=== PATIENT | female | born 1965 | race American Indian/Alaskan Native ===

== ENCOUNTER 2016-11-05 14:19 | Outpatient (CLI) | payer BC | END 2016-11-05 14:20 | disposition home or self-care (01) | LOC: LAB 14:19 | PROVIDERS: ATTEND Internal Medicine | DX: E11.65 Type 2 diabetes mellitus with hyperglycemia (principal) | CPT/HCPCS: 36415; 83036 ==

== ENCOUNTER 2017-01-17 07:18 | Outpatient (CLI) | payer BC ==
--- NOTE | 2017-01-17 08:15 | Mammography Report ---
Bilateral mammogram: Compared to 01/14/16. CAD study utilized. Findings: Predominance of adipose tissue bilaterally. No mass or microcalcification. Benign axillary nodes. Impression: Benign findings. Annual followup recommended. COMMENT: Patient follow-up letters are generated in [employer].BI-RADS CATEGORY: 2 = Benign ACR BI-RADS MAMMOGRAPHIC CODES: 0 = Needs additional imaging evaluation; 1 = Negative; 2 = Benign; 3 = Probably benign; 4 = Suspicious; 5 = Malignant; 6 = Known biopsy-proven malignancy COMMENT: 1. Dense breast tissue, i.e., adenosis, fibrocystic changes, etc., may obscure an underlying neoplasm. 2. Approximately 10% of cancers are not detected with mammography. 3. A negative mammography report should not delay biopsy if a clinically suspicious mass is present.
== END 2017-01-17 07:19 | disposition home or self-care (01) ==
LOC: MAMMO 07:18
PROVIDERS: ATTEND Obstetrics & Gynecology
DX: Z12.31 Encounter for screening mammogram for malignant neoplasm of breast (principal); E11.65 Type 2 diabetes mellitus with hyperglycemia; I10 Essential (primary) hypertension
CPT/HCPCS: 36415; 83036; G0202; 77067

== ENCOUNTER 2017-11-29 11:27 | Outpatient (CLI) | payer BC ==
[2017-11-29 12:13] LABS: Albumin 3.9 g/dL (3.9-5); Calcium 9.1 mg/dL (8.4-10.2); Chol/HDL Ratio 1.89 %
== END 2017-11-29 11:28 | disposition home or self-care (01) ==
LOC: LAB 11:27
PROVIDERS: ATTEND Internal Medicine
DX: E11.65 Type 2 diabetes mellitus with hyperglycemia (principal); R53.83 Other fatigue; E78.2 Mixed hyperlipidemia; I10 Essential (primary) hypertension; Z90.710 Acquired absence of both cervix and uterus
CPT/HCPCS: 36415; 80053; 80061; 83036

== ENCOUNTER 2018-02-06 07:42 | Outpatient (CLI) | payer BC ==
--- NOTE | 2018-02-06 16:30 | Mammography Report ---
BILATERAL DIGITAL SCREENING MAMMOGRAM with CAD: 02/06/18 07:42:00 CLINICAL: Routine screening. COMPARISON:01/17/17 FINDINGS: The breasts are heterogeneously dense, which may obscure small masses. No mass, architectural distortion or suspicious calcifications. IMPRESSION: No mammographic evidence of malignancy. BI-RADS CATEGORY: 1 - - Negative RECOMMENDATION: Routine mammographic screening in one year. COMMENT: Patient follow-up letters are generated by our [employer] application.
== END 2018-02-06 07:43 | disposition home or self-care (01) ==
LOC: MAMMO 07:42
PROVIDERS: ATTEND Obstetrics & Gynecology
DX: Z12.31 Encounter for screening mammogram for malignant neoplasm of breast (principal); I10 Essential (primary) hypertension; E11.9 Type 2 diabetes mellitus without complications; Z90.710 Acquired absence of both cervix and uterus
CPT/HCPCS: 77067

== ENCOUNTER 2018-10-25 10:47 | Outpatient (CLI) | payer BC | END 2018-10-25 10:48 | disposition home or self-care (01) | LOC: LAB 10:47 | PROVIDERS: ATTEND Internal Medicine | DX: E11.65 Type 2 diabetes mellitus with hyperglycemia (principal); I10 Essential (primary) hypertension; Z90.710 Acquired absence of both cervix and uterus | CPT/HCPCS: 36415; 83036 ==

== ENCOUNTER 2019-02-13 07:18 | Outpatient (CLI) | payer BC ==
--- NOTE | 2019-02-13 16:40 | Mammography Report ---
BILATERAL DIGITAL SCREENING MAMMOGRAM WITH CAD INDICATION: Routine screening mammography. TECHNIQUE: Digital bilateral 2D mammography was obtained in the craniocaudal and mediolateral obliq ue projections. This examination was interpreted with the benefit of Computer-Aided Detection analysi s. COMPARISON: 02/06/2018 FINDINGS: Breast Density: The breasts are heterogeneously dense, which may obscure small masses. No mass, architectural distortion or suspicious calcifications. IMPRESSION:No mammographic evidence of malignancy. BI-RADS Category 1: Negative. No mammographic evidence of malignancy. Recommend routine screening m ammography in one year. A "normal" or negative report should not discourage follow up or biopsy of a clinically significant f inding. A written summary of these findings will be mailed to the patient. The patient will be entered into a mammography reporting system which will generate a reminder letter for the patient's next appointmen t at the appropriate interval. The [employer] recommends yearly mammograms starting at age 40 and continuing as l cathi as a woman is in good health. Breast MRI is recommended for women with an approximate 20-25% or greater lifetime risk of breast cancer, including women with a strong family history of breast or ova darwin cancer or who have been treated for Hodgkin's disease. Signer Name: Mahin Mays MD Signed: 02/13/2019 4:36 PM Workstation Name: [id number]
== END 2019-02-13 07:19 | disposition home or self-care (01) ==
LOC: MAMMO 07:18
PROVIDERS: ATTEND Obstetrics & Gynecology
DX: Z12.31 Encounter for screening mammogram for malignant neoplasm of breast (principal); I10 Essential (primary) hypertension; E11.9 Type 2 diabetes mellitus without complications; Z90.710 Acquired absence of both cervix and uterus
CPT/HCPCS: 77067

== ENCOUNTER 2019-07-27 09:21 | Outpatient (CLI) | payer BC ==
[2019-07-27 10:01] LABS: Alanine Aminotransferase 14 units/L (7-56); Albumin 4.2 g/dL (3.9-5); BUN/Creatinine Ratio 16; Blood Urea Nitrogen 16 mg/dL (7-17); Hemolysis Index 6
== END 2019-07-27 09:22 | disposition home or self-care (01) ==
LOC: LAB 09:21
PROVIDERS: ATTEND Internal Medicine
DX: E11.65 Type 2 diabetes mellitus with hyperglycemia (principal); R53.83 Other fatigue
CPT/HCPCS: 36415; 80053; 83036

== ENCOUNTER 2020-03-10 10:17 | Outpatient (CLI) | payer BC ==
--- NOTE | 2020-03-10 12:22 | Ultrasound Report ---
BILATERAL DIGITAL DIAGNOSTIC MAMMOGRAM WITH CAD -- 03/10/2020 RIGHT LIMITED BREAST ULTRASOUND INDICATION: Patient presents for evaluation of an area of palpable concern in the right breast. TECHNIQUE: Digital bilateral mammographic imaging was performed. Spot compression views were obtaine d. Limited ultrasound was performed. This examination was interpreted with the benefit of Computer- ded Detection (CAD) analysis. COMPARISON: Prior mammograms 02/13/2019 and 02/06/2018 FINDINGS: Breast Density: The breasts are heterogeneously dense, which may obscure small masses. MAMMOGRAPHIC FINDINGS: There is no evidence of dominant mass, suspicious calcifications or architectu ral distortion in either breast. There has been no significant change compared with the prior examina tions. There is no mammographic abnormality to account for the area of palpable concern in the 5 to 6 :00 position of the right breast, therefore targeted ultrasound subsequently performed. ULTRASOUND FINDINGS: Targeted ultrasound evaluation was performed of the area of interest. Targeted ultrasound of the area of palpable concern in the lower inner quadrant of the right breast reveals n ormal fibroglandular tissue. No suspicious cystic or solid lesion identified. IMPRESSION: 1. No suspicious mammographic or sonographic abnormality to account for the area of palpable concern in the right breast, therefore clinical correlation is recommended. Follow up recommendation: Routine yearly BI-RADS Category 1: Negative. A "normal" or negative report should not discourage follow up or biopsy of a clinically significant f inding. A written summary of these findings will be mailed to the patient. The patient will be entered into a mammography reporting system which will generate a reminder letter for the patient's next appointmen t at the appropriate interval. According to the [employer], yearly mammograms are recommended starting at age 40 and continuing as long as a woman is in good health. Breast MRI is recommended for women with an eric roximately 20-25% or greater lifetime risk of breast cancer, including women with a strong family his tory of breast or ovarian cancer and women who have been treated for Hodgkin's disease. Signer Name: Shonda Pan MD Signed: 03/10/2020 12:17 PM Workstation Name: [id number]
== END 2020-03-10 10:18 | disposition home or self-care (01) ==
LOC: MAMMO 10:17
PROVIDERS: ATTEND Obstetrics & Gynecology
DX: N63.20 Unspecified lump in the left breast, unspecified quadrant (principal)
CPT/HCPCS: 77066

== ENCOUNTER 2020-03-27 10:06 | Outpatient (CLI) | payer BC ==
[2020-03-27 11:02] LABS: Albumin 4.3 g/dL (3.9-5); Calcium 9.7 mg/dL (8.4-10.2)
== END 2020-03-27 10:07 | disposition home or self-care (01) ==
LOC: LAB 10:06
PROVIDERS: ATTEND Internal Medicine
DX: E11.65 Type 2 diabetes mellitus with hyperglycemia (principal); R53.83 Other fatigue
CPT/HCPCS: 36415; 80053; 83036

== ENCOUNTER 2020-09-18 09:54 | Outpatient (CLI) | payer BC ==
[2020-09-18 10:37] LABS: Albumin 3.9 g/dL (3.9-5); Calcium 9.7 mg/dL (8.4-10.2)
== END 2020-09-18 09:55 | disposition home or self-care (01) ==
LOC: LAB 09:54
PROVIDERS: ATTEND Internal Medicine
DX: E11.65 Type 2 diabetes mellitus with hyperglycemia (principal); R53.83 Other fatigue; R73.09 Other abnormal glucose
CPT/HCPCS: 36415; 80053; 83036; 84443

== ENCOUNTER 2021-03-02 08:52 | Outpatient (CLI) | payer BC ==
--- NOTE | 2021-03-02 09:56 | Mammography Report ---
DIGITAL SCREENING MAMMOGRAM WITH CAD, 03/02/2021 CLINICAL INFORMATION / INDICATION: Routine screening mammography. TECHNIQUE: Digital bilateral 2D mammography was obtained in the craniocaudal and mediolateral obliqu e projections. This examination was interpreted with the benefit of Computer-Aided Detection analysis . COMPARISON: None 2019, 02/13/2019, 02/05/2018, 01/17/2017 FINDINGS: Breast Density: The breasts are heterogeneously dense, which may obscure small masses. No dominant mass, suspicious calcifications, or architectural distortion in either breast. IMPRESSION: No mammographic evidence of malignancy. Follow up recommendation: Routine yearly BI-RADS Category 1: Negative. A "normal" or negative report should not discourage follow up or biopsy of a clinically significant f inding. A written summary of these findings will be mailed to the patient. The patient will be entered into a mammography reporting system which will generate a reminder letter for the patient's next appointmen t at the appropriate interval. The [employer] recommends yearly mammograms starting at age 40 and continuing as l cathi as a woman is in good health. Breast MRI is recommended for women with an approximate 20-25% or greater lifetime risk of breast cancer, including women with a strong family history of breast or ova darwin cancer or who have been treated for Hodgkin's disease. Signer Name: Jessie More MD Signed: 03/02/2021 9:52 AM Workstation Name: [id number]
== END 2021-03-02 08:53 | disposition home or self-care (01) ==
LOC: MAMMO 08:52
PROVIDERS: ATTEND Obstetrics & Gynecology
DX: Z12.31 Encounter for screening mammogram for malignant neoplasm of breast (principal)
CPT/HCPCS: 77067

== ENCOUNTER 2021-04-13 14:43 | Outpatient (CLI) | payer BC ==
[2021-04-13 15:30] LABS: Creatinine,Urine 180.6 mg/dL (0.1-20.0)
[2021-04-13 15:30] LABS: Basophils % (Auto) 1.1 % (0.0-1.8); Eosinophils % (Auto) 0.8 % (0.0-4.3); Hematocrit 37.8 % (30.3-42.9); Hemoglobin 11.9 gm/dl (10.1-14.3); Lymphocytes # (Auto) 1.8 K/mm3 (1.2-5.4); Lymphocytes % (Auto) 49.3 % (13.4-35.0); Mean Corpuscular HGB Conc 32 % (30-34); Mean Corpuscular Volume 83 fl (79-97); Monocytes # (Auto) 0.3 K/mm3 (0.0-0.8); Monocytes % (Auto) 8.7 % (0.0-7.3); Platelet Count 201 K/mm3 (140-440); Red Blood Count 4.59 M/mm3 (3.65-5.03); Red Cell Distribution Width 15.5 % (13.2-15.2)
[2021-04-13 15:31] LABS: Albumin 4.4 g/dL (3.9-5); Calcium 9.4 mg/dL (8.4-10.2); Chol/HDL Ratio 2.27 %
[2021-04-13 15:45] LABS: Microalbumin/Creatinine Ratio 6.6 ug/mg
== END 2021-04-13 14:44 | disposition home or self-care (01) ==
LOC: LAB 14:43
PROVIDERS: ATTEND Internal Medicine
DX: Z00.00 Encounter for general adult medical examination without abnormal findings (principal); E55.9 Vitamin D deficiency, unspecified; E11.65 Type 2 diabetes mellitus with hyperglycemia; E78.2 Mixed hyperlipidemia; R73.09 Other abnormal glucose; Z91.89 Other specified personal risk factors, not elsewhere classified
CPT/HCPCS: 36415; 80053; 80061; 82043; 82306; 83036; 84443; 85025

== ENCOUNTER 2021-07-21 12:34 | Outpatient (CLI) | payer BC ==
[2021-07-21 13:31] LABS: Hemoglobin 11.8 gm/dl (10.1-14.3); Mean Corpuscular HGB Conc 31 % (30-34); Mean Corpuscular Volume 82 fl (79-97); Platelet Count 190 K/mm3 (140-440); Red Blood Count 4.65 M/mm3 (3.65-5.03); Red Cell Distribution Width 15.3 % (13.2-15.2)
[2021-07-21 13:49] LABS: Albumin 4.3 g/dL (3.9-5); Calcium 9.3 mg/dL (8.4-10.2); Chol/HDL Ratio 2.16 %
== END 2021-07-21 12:35 | disposition home or self-care (01) ==
LOC: LAB 12:34
PROVIDERS: ATTEND Internal Medicine
DX: E78.2 Mixed hyperlipidemia (principal); E55.9 Vitamin D deficiency, unspecified; E11.65 Type 2 diabetes mellitus with hyperglycemia; I10 Essential (primary) hypertension; R53.83 Other fatigue
CPT/HCPCS: 36415; 80053; 80061; 82652; 83036; 85027